=== PATIENT | female | born 1935 | race Caucasian/White ===

== ENCOUNTER → 2016-10-21 | Outpatient (CLI) | payer MEDICARE, BC ==
[2016-10-21 10:53] LABS: Cholesterol 290 mg/dL (<200); HDL Cholesterol 95 mg/dL (40-60); Triglycerides 100 mg/dL (<150)
== END | disposition home or self-care (01) ==
LOC: LABWHC1 09:57
PROVIDERS: ATTEND Family Medicine
DX: E78.5 Hyperlipidemia, unspecified (principal)
CPT/HCPCS: 36415; 80061

== ENCOUNTER → 2017-03-24 | Outpatient (CLI) | payer MEDICARE, BC ==
[2017-03-24 10:34] LABS: Cholesterol 255 mg/dL (<200); HDL Cholesterol 92 mg/dL (40-60); Triglycerides 89 mg/dL (<150)
== END | disposition home or self-care (01) ==
LOC: LABWHC1 09:15
PROVIDERS: ATTEND Family Medicine
DX: E78.5 Hyperlipidemia, unspecified (principal)
CPT/HCPCS: 36415; 80061

== ENCOUNTER → 2017-07-21 | Outpatient (CLI) | payer MEDICARE, BC ==
[2017-07-21 11:05] LABS: CH 30.5; CHCM 33.3; HCT 42.3 % (34.0-46.0); HDW 2.59; HGB 13.9 gm/dL (11.4-16.0); MCH 30.1 pg (25.0-35.0); MCHC 32.8 g/dL (31.0-37.0); MCV 91.9 fL (80.0-100.0); Mean Platelet Volume 6.7; RDW 12.5 % (11.5-15.5); WBC 8.6 k/uL (3.8-10.6)
[2017-07-21 11:15] LABS: Appearance,Urine Clear (Clear); Bilirubin,Urine Negative (Negative); Glucose,Urine (UA) Negative (Negative); Ketones,Urine Negative (Negative); Leukocyte Esterase,Urine Negative (Negative); Nitrite,Urine Negative (Negative); Protein,Urine Negative (Negative); Specific Gravity,Urine 1.006 (1.001-1.035); UA Billing (MACRO vs. MICRO) CHEM; Urobilinogen,Urine <2.0 mg/dL (<2.0)
[2017-07-21 11:31] LABS: ALT 31 U/L (9-52); AST 25 U/L (14-36); Alkaline Phosphatase 106 U/L (38-126); Anion Gap 10 mmol/L; Blood Urea Nitrogen 17 mg/dL (7-17); Calcium 10.1 mg/dL (8.4-10.2); Carbon Dioxide 30 mmol/L (22-30); Chloride 101 mmol/L (98-107); Cholesterol 267 mg/dL (<200); Glucose 92 mg/dL (74-99); HDL Cholesterol 83 mg/dL (40-60); Non-African American GFR(MDRD) >60 (>60 ml/min/1.73 sqM); Potassium 4.3 mmol/L (3.5-5.1); Sodium 141 mmol/L (137-145); Total Bilirubin 0.5 mg/dL (0.2-1.3); Total Protein 7.6 g/dL (6.3-8.2)
== END | disposition home or self-care (01) ==
LOC: LABWHC1 10:08
PROVIDERS: ATTEND Family Medicine
DX: E78.5 Hyperlipidemia, unspecified (principal); I10 Essential (primary) hypertension; Z79.899 Other long term (current) drug therapy
CPT/HCPCS: 36415; 80053; 80061; 81003; 82306; 83036; 84443; 85027

== ENCOUNTER → 2018-03-09 | Outpatient (CLI) | payer MEDICARE, BC ==
--- NOTE | 2018-03-10 11:06 | CT ---
EXAMINATION TYPE: CT chest wo con DATE OF EXAM: 03/09/2018 COMPARISON: Chest CT October 01, 2015 HISTORY: Shortness of breath x years. Cough and shortness of breath per order CT DLP: 286 mGycm. Automated Exposure Control for Dose Reduction was Utilized. TECHNIQUE: CT scan of the thorax is performed without IV contrast. FINDINGS: LUNGS: There is redemonstration of moderate to severe right apical pleural/parenchymal spiculated mas slike scarring not significantly changed from prior studies axial image 6. Some additional scattered areas of linear scarring throughout the right upper lobe remains present. There is however new suspic ious spiculated nodule that has grown lateral to the prior vague nodule which is less well-seen on cu rrent study but likely present coronal image 37. The new spiculated area of concern measures roughly 1.4 x 1.2 cm axial image 23 with groundglass opacity and spiculation medial to this. There is persist ent focal linear scarring in the lingula near axial image 37 redemonstrated. There is no pleural effu marylou or pneumothorax seen bilaterally. Tracheobronchial tree is patent. MEDIASTINUM: Lack of IV contrast is noted to limit evaluation for mediastinal and especially hilar a denopathy. There are no definitive greater than 1 cm hilar or mediastinal lymph nodes. No cardiomeg brent or pericardial effusion is seen. Prominence of left and right pulmonary arteries is noted. Large nodules in the thyroid gland are redemonstrated including lower pole calcified right thyroid nodule. There is moderate calcified plaque of the abdominal aorta. OTHER: Debris filled stomach is seen. Exaggerated thoracic kyphosis is redemonstrated. IMPRESSION: New suspicious spiculated nodule lateral inferior right upper lobe in which neoplasm samanta ot be excluded. Advise PET/CT and/or imaging guided biopsy to further assess.
== END | disposition home or self-care (01) ==
LOC: RADCTMAIN 16:13
PROVIDERS: ATTEND Internal Medicine Pulmonary Disease
DX: R05 Cough (principal); R06.02 Shortness of breath
CPT/HCPCS: 71250

== ENCOUNTER → 2018-08-01 | Outpatient (CLI) | payer MEDICARE, BC ==
[2018-08-01 14:40] LABS: Blood Urea Nitrogen 15 mg/dL (7-17)
--- NOTE | 2018-08-01 15:13 | CT ---
EXAMINATION TYPE: CT chest w con DATE OF EXAM: 08/01/2018 COMPARISON: 03/09/2018 HISTORY: Lung cancer CT DLP: 119.80 mGycm Automated exposure control for dose reduction was used. CONTRAST: CT scan of the chest is performed with IV Contrast, patient injected with 100 mL of Isovue 300. FINDINGS: LUNGS: There is redemonstration of moderate to severe right apical pleural/ parenchymal spiculated ma sslike scarring not significantly changed from prior studies. Some additional scattered areas of linear scarring throughout the right upper lobe remains present. The nodule noted to be new on the prior exam which was measures 1.8 x 1.3 cm and previously measured measures roughly 1.4 x 1.2 cm with groundglass opacity and spiculation medial to this. There is persistent focal linear scarring in the lingula. There is no pleural effusion or pneumothorax seen bilaterally. Tracheobronchial tree is patent. There is a vague appearing nodule in the right upper lobe measuring 1.1 x 0.4 mm appears measuring 1 x 0.3 mm. Subpleural areas of nodularity are noted. Vague nodules in the right upper lobe measuring 3 mm a re stable seen situated adjacent to each other. Apical linear scarring is noted. MEDIASTINUM: Prominence of left and right pulmonary arteries is noted. Large nodules in the thyroid g land are redemonstrated including lower pole calcified right thyroid nodule. There is moderate calcif ied plaque of the thoracic aorta. OTHER: Hypertrophic and degenerative change of the vertebral column. Subcentimeter hypodensity left kidney too small to characterize but likely related to simple cyst. IMPRESSION: 1. The nodule noted to be The previous exam as demonstrated a slight interval increase in size now measuring 1.8 x 1.3 cm and p reviously measuring 1.4 x 1.2 cm. 2. Persistent asymmetric irregular right apical pleural thickening stable. There are multiple additio nal areas of nodularity seen which appear similar to the prior exam. 3. 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
== END | disposition home or self-care (01) ==
LOC: RADCTMAIN 13:51
PROVIDERS: ATTEND Radiology Diagnostic Radiology
DX: C34.91 Malignant neoplasm of unspecified part of right bronchus or lung (principal); J92.9 Pleural plaque without asbestos
CPT/HCPCS: 82565; 84520; 71260; 36415; Q9967